=== PATIENT | female | born 1995 | race Caucasian/White ===

== ENCOUNTER 2016-12-29 20:10 | Emergency (ER) | payer MEDICAID ==
[2016-12-29] MEDS ORDERED: ACETAMINOPHEN 325 MG TAB ONE (21:37)
[2016-12-29] MEDS ORDERED: ACETAMINOPHEN 160 MG/5 ML UDC ONE (21:40)
== END 2016-12-29 21:50 | disposition home or self-care (01) ==
LOC: ER 20:10
DX: J20.9 Acute bronchitis, unspecified (principal); J06.9 Acute upper respiratory infection, unspecified
CPT/HCPCS: 87804; 87880